=== PATIENT | female | born 1970 | race Caucasian/White ===

== ENCOUNTER 2025-01-09 08:21 | Emergency (ER) | payer OTHER ==
[2025-01-09] MEDS: Diphtheria,Pertussis(Acell),Tetanus Vaccine 0.5 ML Syringe IM ONE (09:15)
[2025-01-09] MEDS: Bacitracin Oint 1 GM U/D Packet TOP ONE (09:15)
[2025-01-09] MEDS: Bacitracin/Neomycin/Polymyxin B Oint 0.9 GM U/D Packet TOP ONE (09:36)
== END 2025-01-09 09:18 | disposition home or self-care (01) ==
LOC: LB.ED 08:21
DX: S81.802A Unspecified open wound, left lower leg, initial encounter (principal); Z23 Encounter for immunization; Z87.891 Personal history of nicotine dependence; W22.8XXA Striking against or struck by other objects, initial encounter
CPT/HCPCS: 90471; 90715; 99283-25